=== PATIENT | female | born 1980 | race Caucasian/White ===

== ENCOUNTER 2018-02-09 15:39 | Inpatient (IN) ==
[2018-02-09] MEDS ORDERED: *HR* HYDROmorphone 2 MG/ML SYRINGE IVP ONE (16:43)
[2018-02-09] MEDS ORDERED: Hyoscyamine SL 0.125 MG TAB.SUBL SL ONE (16:43)
[2018-02-09 16:52] LABS: Bilirubin,Urine Negative (Negative); Blood,Urine Moderate (Negative); Clarity,Urine Clear (Clear); Color,Urine Yellow (Yellow); Glucose,Urine (UA) Normal (Normal); Ketones,Urine Negative (Negative); Leukocyte Esterase,Urine Trace (Negative); Nitrite,Urine Positive (Negative); PH,Urine 5.5 pH Units (5.0-8.0); Protein,Urine Negative (Neg-Trace); Specific Gravity,Urine 1.029 (1.010-1.025); Urobilinogen,Urine Normal (Normal)
[2018-02-09 17:04] LABS: Bacteria,Urine None Seen per hpf (None-Few); Hyaline Casts,Urine None Seen per lpf (None-Few); RBC,Urine 0-3 per hpf (0-3); Squamous Epithelial Cell,Urine Many per lpf (None-Few)
[2018-02-09 17:27] LABS: Basophils % 0.3 %; Eosinophils # 0.1 K/mcL (0.0-0.6); Hematocrit 42.2 % (35.3-44.9); Hemoglobin 13.7 g/dL (11.5-15.4); Immature Granulocytes % 0.3 % (0-4); Lymphocytes % 22.2 %; Mean Corpuscular HGB Conc 32.5 g/dL (31.6-35.5); Mean Corpuscular Volume 86.1 fL (83.0-100.0); Mean Platelet Volume 9.9 fL (9.4-12.4); Monocytes # 0.7 K/mcL (0.0-1.3); Neutrophils # 9.5 K/mcL (1.6-8.9); Platelet Count 277 K/mcL (140-400); Red Cell Distribution Width 13.7 % (11.5-14.5); Segmented Neutrophils % 71.2 %
[2018-02-09 17:43] LABS: Alanine Aminotransferase 18 Units/L (7-52); Albumin 4.1 g/dL (3.5-5.7); Albumin/Globulin Ratio 1.6 (1.1-2.2); Alkaline Phosphatase 110 Units/L (34-104); Aspartate Amino Transferase 15 Units/L (13-39); BUN/Creatinine Ratio 18 (6-26); Bilirubin,Total 0.4 mg/dL (0.3-1.0); Blood Urea Nitrogen 14 mg/dL (6-20); Calcium 9.3 mg/dL (8.6-10.3); Carbon Dioxide 25 mEq/L (23-29); Chloride 106 mEq/L (98-107); Globulin 2.6 g/dL (2.4-3.5); Glucose 108 mg/dL (70-105); Osmolality,Calculated 289 (280-300); Potassium 3.7 mEq/L (3.5-5.1); Sodium 139 mEq/L (136-145); Total Protein 6.7 g/dL (6.4-8.9); eGFR For Non-African Americans > 60 (> 60)
[2018-02-09] MEDS ORDERED: cefTRIAXone 1,000 MG in Water for inj. (sterile) 20 ML 10 ML IVP ONE (18:24)
--- NOTE | 2018-02-09 18:33 | Emergency Department Note ---
Disposition Clinical Impression: Kidney stone Disposition: Admitted As Inpatient Condition: Undetermined Referrals: Valentina Main MD [Primary Care Provider] - Forms: ED Satisfaction Letter, Work/School Release General Adult HPI - General Chief complaint: ED Abdominal Pain Stated complaint: FLANK PAIN Time Seen by Provider: 02/09/18 15:48 Source: patient Limitations: no limitations Nursing Notes Reviewed: Yes Vital Signs Reviewed: Yes - History of Present Illness HPI Narrative: This is a 29-year-old female has a history of kidney stones. She presents with concern for kidney stone again. She has required retrieval in the past. She has no fever or chills but has significant flank pain bilaterally. She has no sick or ill contacts. General: No acute distress HEENT: Pupils equal and reactive to light, extraoccular muscle movement is normal, TMS are clear bilaterally. Heart: RRR, No murmor rub or gallop Lungs: lungs clear, no wheezing, rales or ronchi. ABD: SNT, no focal areas or tenderness, no guarding or rebound tenderness. Extremities: No cyanosis, clubbing or edema Neuro: CN 2-12 in tact, no focal deficit. strength 5/5. CVA tenderness bilaterally 12 point review of systems was completed and pertinent positives are discussed. Medical decision making Findings consistent with kidney stone. This is obstructing. It is possibly infected. She does have nitrite positive urine. She will be admitted for pain control and antibiotics. Ceftriaxone was initiated. Pain Scale: 7 - Related Data Home Medications Medication Instructions Recorded Confirmed Diphenoxylate/Atropine [Lomotil 1 tab PO QID PRN 02/09/18 02/09/18 2.5 mg/0.025 mg] Oxybutynin [Ditropan] 5 mg PO BID 02/09/18 02/09/18 Allergies Allergy/AdvReac Type Severity Reaction Status Date / Time No Known Allergies Allergy Verified 02/09/18 18:36 Past Medical History - Past Medical History Medical history: Reports: non-contributory Psychiatric history: Reports: no psych history - Social History Smoking Status: Never smoker Smokeless Tobacco Status: No Alcohol use: Reports: none Drug use: Reports: none Physical Exam - General Limitations: no limitations General appearance: alert Course Vital Signs Temperature 97.9 F 02/09/18 15:43 Pulse Rate 79 02/09/18 15:43 Respiratory Rate 16 02/09/18 15:43 Blood Pressure 190/105 02/09/18 15:43 O2 Sat by Pulse Oximetry 97 02/09/18 15:43 Temperature 97.9 F 02/09/18 16:22 Pulse Rate 78 02/09/18 18:12 Respiratory Rate 18 02/09/18 18:12 Blood Pressure 142/83 02/09/18 18:12 O2 Sat by Pulse Oximetry 100 02/09/18 18:12 Oxygen Delivery Oxygen Delivery Room Air Medical Decision Making - Lab Data Result diagrams: 02/09/18 16:55 02/09/18 16:55 Lab Results 02/09/18 02/09/18 02/09/18 Range/Units 16:26 16:55 16:55 WBC 13.4 H (4.3-11.1) K/mcL RBC 4.90 (3.82-4.97) M/mcL Hgb 13.7 (11.5-15.4) g/dL Hct 42.2 (35.3-44.9) % MCV 86.1 (83.0-100.0) fL MCH 28.0 (28.0-33.3) pg MCHC 32.5 (31.6-35.5) g/dL RDW 13.7 (11.5-14.5) % Plt Count 277 (140-400) K/mcL MPV 9.9 (9.4-12.4) fL Immature Gran % 0.3 (0-4) % Seg Neutrophils % 71.2 % Lymphocytes % 22.2 % Monocytes % 5.0 % Eosinophils % 1.0 % Basophils % 0.3 % Neutrophils # 9.5 H (1.6-8.9) K/mcL Lymphocytes # 3.0 (0.6-4.6) K/mcL Monocytes # 0.7 (0.0-1.3) K/mcL Eosinophils # 0.1 (0.0-0.6) K/mcL Basophils # 0.0 (0.0-0.2) K/mcL Sodium 139 (136-145) mEq/L Potassium 3.7 (3.5-5.1) mEq/L Chloride 106 (98-107) mEq/L Carbon Dioxide 25 (23-29) mEq/L BUN 14 (6-20) mg/dL Creatinine 0.78 (0.60-1.20) mg/dL Est GFR ( Amer) > 60 (> 60) Est GFR (Non-Af Amer) > 60 (> 60) BUN/Creatinine Ratio 18 (6-26) Glucose 108 H (70-105) mg/dL Calculated Osmolality 289 (280-300) Calcium 9.3 (8.6-10.3) mg/dL Total Bilirubin 0.4 (0.3-1.0) mg/dL AST 15 (13-39) Units/L ALT 18 (7-52) Units/L Alkaline Phosphatase 110 H (34-104) Units/L Serum Total Protein 6.7 (6.4-8.9) g/dL Albumin 4.1 (3.5-5.7) g/dL Globulin 2.6 (2.4-3.5) g/dL Albumin/Globulin Ratio 1.6 (1.1-2.2) Urine Color Yellow (Yellow) Urine Clarity Clear (Clear) Urine pH 5.5 (5.0-8.0) pH Units Ur Specific [place] 1.029 H (1.010-1.025) Urine Protein Negative (Neg-Trace) mg/dL Urine Glucose (UA) Normal (Normal) mg/dL Urine Ketones Negative (Negative) mg/dL Urine Blood Moderate H (Negative) Urine Nitrite Positive A (Negative) Urine Bilirubin Negative (Negative) Urine Urobilinogen Normal (Normal) mg/dL Ur Leukocyte Esterase Trace H (Negative) Urine Microscopic RBC 0-3 (0-3) per hpf Urine Microscopic WBC 3-5 H (0-3) per hpf Ur Squamous Epith Cells Many H (None-Few) per lpf Urine Bacteria None Seen (None-Few) per hpf Hyaline Casts None Seen (None-Few) per lpf Ur Culture Indicated? NO. A (NO)
[2018-02-09] MEDS ORDERED: Ketorolac 30 MG/ML VIAL IVP ONE (18:36)
[2018-02-09] MEDS ORDERED: *HR* Belladonna Alkaloids/Opium 30 MG RECTAL SUPPOSITORY RC ONE (18:37)
[2018-02-09] MEDS ORDERED: *HR* Morphine 2 MG/ML SYRINGE IVP ONE (20:11)
[2018-02-09] MEDS ORDERED: Naloxone 0.4 MG/ML INJ IVP PRN (20:21)
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
[2018-02-09] MEDS ORDERED: Ringers Solution, Lactated 1,000 ML IVC SCH (21:45)
[2018-02-09] MEDS ORDERED: Ondansetron 4 MG/2 ML VIAL IVP PRN (21:47)
[2018-02-09] MEDS ORDERED: *HR* OxyCODONE ER (12 HR) 10 MG TABLET PO ONE (22:38)
[2018-02-10] MEDS: Ketorolac 15 MG/ML VIAL IVP PRN ×5 (00:24→22:54)
[2018-02-10 05:52] LABS: Basophils % 0.2 %; Eosinophils % 0.2 %; Hematocrit 37.3 % (35.3-44.9); Hemoglobin 12.5 g/dL (11.5-15.4); Immature Granulocytes % 0.4 % (0-4); Lymphocytes # 1.3 K/mcL (0.6-4.6); Lymphocytes % 6.7 %; Mean Corpuscular HGB Conc 33.5 g/dL (31.6-35.5); Mean Corpuscular Hemoglobin 28.4 pg (28.0-33.3); Mean Corpuscular Volume 84.8 fL (83.0-100.0); Mean Platelet Volume 10.2 fL (9.4-12.4); Monocytes # 0.7 K/mcL (0.0-1.3); Monocytes % 3.8 %; Neutrophils # 17.2 K/mcL (1.6-8.9); Platelet Count 218 K/mcL (140-400); Red Cell Distribution Width 14.1 % (11.5-14.5); Segmented Neutrophils % 88.7 %
[2018-02-10] MEDS ORDERED: *HR* Heparin 5,000 UNIT/ML VIAL SQ SCH (06:00)
[2018-02-10] MEDS ORDERED: D5% in Lactated Ringers 1,000 ML IVC SCH ×2 (06:00→19:24)
[2018-02-10 06:14] LABS: BUN/Creatinine Ratio 17 (6-26); Blood Urea Nitrogen 17 mg/dL (6-20); Calcium 8.8 mg/dL (8.6-10.3); Carbon Dioxide 24 mEq/L (23-29); Chloride 106 mEq/L (98-107); Glucose 99 mg/dL (70-105); Osmolality,Calculated 290 (280-300); Potassium 3.9 mEq/L (3.5-5.1); Sodium 139 mEq/L (136-145); eGFR For Non-African Americans > 60 (> 60)
[2018-02-10 06:15] LABS: INR 1.2; Prothrombin Time 13.3 Seconds (9.4-12.1)
[2018-02-10 06:18] LABS: Activated Partial Thrombo Time 28.1 Seconds (26.0-36.0)
[2018-02-10] MEDS ORDERED: *HR* HYDROcodone/Acet 5/325 mg TABLET PO PRN ×2 (08:09→19:24)
--- NOTE | 2018-02-10 08:15 | Internal Med Progress Note ---
Hospitalist Progress Note - Encounter Date of Encounter: 02/10/18 Time of Encounter: 08:11 - Subjective Interval History: Patient seen and evaluated at bedside, reports that she is still having significant back and abdominal pain, associated with nausea, one episode of vomiting this morning. Report chills. - Exam Vitals: Temp Pulse Resp BP Pulse Ox 98.3 F 84 16 128/86 93 02/10/18 07:06 02/10/18 07:06 02/10/18 07:06 02/10/18 07:06 02/10/18 07:06 Exam: General: Alert and oriented. In moderate distress due to pain. Skin:Normal color, no rash, no lesions. HEENT: EOM, pupils equal, round and reactive. Cardiovascular: RRR, Normal S1 & S2, no rubs, murmurs or gallops. No JVD. Pulse regular. Lungs: CTA b/l, no wheezes or crackles. Abdomen: Soft, generalized tender superficial palpation, no rigidity. CVA tenderness Extremities: No deformity, no edema or tenderness, no joint swelling or clubbing. Neurological: Normal cognition and motor skills. Rest of the physical exam is non contributory - Assessment and Plan (1) Ureteral stone with hydronephrosis Current Visit: Yes Status: Acute Assessment and Plan: CT/CT abd pelvis wo no iv no oral IMPRESSION: 9 mm left UVJ calculus causing moderate proximal hydroureteronephrosis. Additional sub 5 mm nonobstructing left renal calculi are identified. Plan: Patient still reporting abdominal pain associated with chills, nausea and vomiting. Patient is scheduled for ureteroscopic stone extraction with holmium laser Discontinue Ketorolac for pain control as pain is not well controlled started on [place] 5/325mg/PO Q6HR for pain continue IV hydration. (2) Urinary tract infection Current Visit: Yes Status: Acute Assessment and Plan: patient reporting chills and subjective fever. WBC trending up multifactorial UTI vs pain. Discontinue ceftriaxone. will start patient on Piperacillin/Tazobactam Pending urine culture and sensitivity B?C no growth, pending final report. (3) Nausea & vomiting Current Visit: Yes Status: Acute Assessment and Plan: Patient continues to report nausea and one episode of vomiting this morning. On Ondansetron Q4HR PRN. Will change to scheduled. (4) Uncontrolled pain Current Visit: Yes Status: Acute Assessment and Plan: Abdominal and back pain caused by the kidney stone is not well controlled. started on [place] 5/325mg PO Q4HR PRN for pain control. DVT Prophylaxis: chemical DVT prophylaxic discontinued as patient is scheduled for a urological procedure. Mechanical DVT prophylaxis with Intermittent pneumatic compressions. - Summary of Assessment and Plan Summary of Assessment and Plan: Patient to remain hospitalized due to uncontrolled abdominal pain due to kidney stone, scheduled for ureteroscopic stone extraction with holmium laser today. - Time Spent with Patient Total time spent is greater than 50% in coordination of care (as documented) at patient's floor/unit and/or counseling patient: 25 - 35 minutes Plan of Care Discussed with: patient (the nurse.) Internal Medicine: Result - Labs CBC & Chem 7: 02/10/18 04:44 02/10/18 04:44 Labs: Short CBC 02/10/18 Range/Units 04:44 WBC 19.3 H (4.3-11.1) K/mcL Hgb 12.5 (11.5-15.4) g/dL Hct 37.3 (35.3-44.9) % Plt Count 218 (140-400) K/mcL Neutrophils # 17.2 H (1.6-8.9) K/mcL BMP 02/10/18 04:44 Sodium 139 Potassium 3.9 Chloride 106 Carbon Dioxide 24 BUN 17 Creatinine 0.98 Glucose 99 Calcium 8.8 - ABG Interpretation ABG results: PT/INR, D-dimer PT 13.3 Seconds (9.4-12.1) H 02/10/18 04:44 Consult Discharge Plan - Plan Referrals: Valentina Main MD [Primary Care Provider] - (2) Urinary tract infection Qualifiers: Urinary tract infection type: site unspecified Hematuria presence: without hematuria Qualified Code(s): N39.0 - Urinary tract infection, site not specified (3) Nausea & vomiting Qualifiers: Vomiting type: unspecified Vomiting Intractability: non-intractable Qualified Code(s): R11.2 - Nausea with vomiting, unspecified
[2018-02-10] MEDS ORDERED: cefTRIAXone 1,000 MG in Water for inj. (sterile) 20 ML 10 ML IVP SCH (09:00)
[2018-02-10] MEDS: Piperacillin/Tazobactam 3.375 GM in 0.9 % Sodium Chloride Mini Bag 100 ML IVPB SCH ×2 (10:46→17:55)
[2018-02-10] MEDS: Ondansetron 4 MG/2 ML VIAL IVP SCH ×2 (12:52→17:55)
[2018-02-10] MEDS ORDERED: Dexamethasone 4 MG/ML VIAL ONE (14:44)
[2018-02-10] MEDS ORDERED: Ondansetron 4 MG/2 ML VIAL ONE (14:44)
[2018-02-10] MEDS ORDERED: Lidocaine -MPF 2% 2 ML VIAL ONE (14:44)
[2018-02-10] MEDS ORDERED: *HR* Propofol 200 MG/20 ML VIAL IVP ONE (14:45)
[2018-02-10] MEDS ORDERED: *HR* FentaNYL (PF) 100 MCG/2 ML VIAL ONE (14:45)
--- NOTE | 2018-02-10 14:50 | Anesthesia Evaluation PreOp ---
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 Other Medical History: Renal (RECURRENT RENAL STONES), Other (MORBID OBESITY, BMI 40) Anesthesia History: Past Anesthesia, Problems (ITCHING POST ANESTHESIA - REQUIRES BENADRYL) Alcohol Use: none Drug use: none Medications and Allergies Diphenoxylate/Atropine [Lomotil 2.5 mg/0.025 mg] 1 tab PO QID PRN 02/09/18 [ History] Oxybutynin [Ditropan] 5 mg PO BID 02/09/18 [History] 3 Allergy/AdvReac Type Severity Reaction Status Date / Time No Known Allergies Allergy Verified 02/09/18 18:36 - Meds/Allergy Pre-op Review Medications Reviewed: Yes Allergies Reviewed: Yes Beta Blockers on Current Med List: No Anesthesia Results - Labs 02/10/18 04:44 02/10/18 04:44 Laboratory Last Values WBC 19.3 K/mcL (4.3-11.1) H 02/10/18 04:44 RBC 4.40 M/mcL (3.82-4.97) 02/10/18 04:44 Hgb 12.5 g/dL (11.5-15.4) 02/10/18 04:44 Hct 37.3 % (35.3-44.9) 02/10/18 04:44 MCV 84.8 fL (83.0-100.0) 02/10/18 04:44 MCH 28.4 pg (28.0-33.3) 02/10/18 04:44 MCHC 33.5 g/dL (31.6-35.5) 02/10/18 04:44 RDW 14.1 % (11.5-14.5) 02/10/18 04:44 Plt Count 218 K/mcL (140-400) 02/10/18 04:44 MPV 10.2 fL (9.4-12.4) 02/10/18 04:44 Immature Gran % 0.4 % (0-4) 02/10/18 04:44 Seg Neutrophils % 88.7 % 02/10/18 04:44 Lymphocytes % 6.7 % 02/10/18 04:44 Monocytes % 3.8 % 02/10/18 04:44 Eosinophils % 0.2 % 02/10/18 04:44 Basophils % 0.2 % 02/10/18 04:44 Neutrophils # 17.2 K/mcL (1.6-8.9) H 02/10/18 04:44 Lymphocytes # 1.3 K/mcL (0.6-4.6) 02/10/18 04:44 Monocytes # 0.7 K/mcL (0.0-1.3) 02/10/18 04:44 Eosinophils # 0.0 K/mcL (0.0-0.6) 02/10/18 04:44 Basophils # 0.0 K/mcL (0.0-0.2) 02/10/18 04:44 PT 13.3 Seconds (9.4-12.1) H 02/10/18 04:44 INR 1.2 02/10/18 04:44 APTT 28.1 Seconds (26.0-36.0) 02/10/18 04:44 Sodium 139 mEq/L (136-145) 02/10/18 04:44 Potassium 3.9 mEq/L (3.5-5.1) 02/10/18 04:44 Chloride 106 mEq/L (98-107) 02/10/18 04:44 Carbon Dioxide 24 mEq/L (23-29) 02/10/18 04:44 BUN 17 mg/dL (6-20) 02/10/18 04:44 Creatinine 0.98 mg/dL (0.60-1.20) 02/10/18 04:44 Est GFR ( Amer) > 60 (> 60) 02/10/18 04:44 Est GFR (Non-Af Amer) > 60 (> 60) 02/10/18 04:44 BUN/Creatinine Ratio 17 (6-26) 02/10/18 04:44 Glucose 99 mg/dL (70-105) 02/10/18 04:44 Calculated Osmolality 290 (280-300) 02/10/18 04:44 Calcium 8.8 mg/dL (8.6-10.3) 02/10/18 04:44 Total Bilirubin 0.4 mg/dL (0.3-1.0) 02/09/18 16:55 AST 15 Units/L (13-39) 02/09/18 16:55 ALT 18 Units/L (7-52) 02/09/18 16:55 Alkaline Phosphatase 110 Units/L (34-104) H 02/09/18 16:55 Serum Total Protein 6.7 g/dL (6.4-8.9) 02/09/18 16:55 Albumin 4.1 g/dL (3.5-5.7) 02/09/18 16:55 Globulin 2.6 g/dL (2.4-3.5) 02/09/18 16:55 Albumin/Globulin Ratio 1.6 (1.1-2.2) 02/09/18 16:55 Serum , Qual Negative (Negative) 02/10/18 07:53 Urine Color Yellow (Yellow) 02/09/18 16:26 Urine Clarity Clear (Clear) 02/09/18 16:26 Urine pH 5.5 pH Units (5.0-8.0) 02/09/18 16:26 Ur Specific [place] 1.029 (1.010-1.025) H 02/09/18 16:26 Urine Protein Negative mg/dL (Neg-Trace) 02/09/18 16:26 Urine Glucose (UA) Normal mg/dL (Normal) 02/09/18 16:26 Urine Ketones Negative mg/dL (Negative) 02/09/18 16:26 Urine Blood Moderate (Negative) H 02/09/18 16:26 Urine Nitrite Positive (Negative) A 02/09/18 16:26 Urine Bilirubin Negative (Negative) 02/09/18 16:26 Urine Urobilinogen Normal mg/dL (Normal) 02/09/18 16:26 Ur Leukocyte Esterase Trace (Negative) H 02/09/18 16:26 Urine Microscopic RBC 0-3 per hpf (0-3) 02/09/18 16:26 Urine Microscopic WBC 3-5 per hpf (0-3) H 02/09/18 16:26 Ur Squamous Epith Cells Many per lpf (None-Few) H 02/09/18 16:26 Urine Bacteria None Seen per hpf (None-Few) 02/09/18 16:26 Hyaline Casts None Seen per lpf (None-Few) 02/09/18 16:26 Ur Culture Indicated? NO. (NO) A 02/09/18 16:26 Anesthesia Exam Vital Signs/O2 Sat/Glucose, Most Recent Temp Pulse Resp BP Pulse Ox 97.6 F 74 16 121/78 94 02/10/18 11:54 02/10/18 11:54 02/10/18 11:54 02/10/18 11:54 02/10/18 11:54 HEIGHT 1.7 m WERIGHT 117 kg BMI 40 - HEENT Mallampati: I Teeth: Normal Oral Opening: Greater than 3 - Cardiac Rhythm: Regular - Pulmonary Breath Sounds: bilateral Clear Respiratory Effort: Symmetrical - Additional Findings MAR Administrations Hydrocodone Bitart/Acetaminophen ([place] 5-325 Mg) 1 tab PO Q6HR PRN PRN Reason: mild to moderate pain Stop: 08/12/18 08:10 Last Admin: 02/10/18 08:57 Dose: 1 tab Dextrose/Lactated Ringer's (D5% & Lact. Ringers 1000 Ml Bag) 1,000 mls @ 75 mls /hr IVC .[id number] [facility] Stop: 08/12/18 06:01 Last Admin: 02/10/18 06:55 Dose: 75 mls/hr Piperacillin Sod/Tazobactam (Sod 3.375 gm/ Sodium Chloride) 100 mls @ 25 mls/ hr IVPB Q8H [facility] Stop: 08/12/18 09:01 Last Admin: 02/10/18 10:46 Dose: 25 mls/hr Ketorolac Tromethamine (Toradol) 15 mg IVP Q4HR PRN PRN Reason: Pain Stop: 02/15/18 16:01 Last Admin: 02/10/18 12:52 Dose: 15 mg Ondansetron HCl (Zofran) 4 mg IVP Q6HR GIDEON PRN Reason: Protocol Stop: 08/12/18 12:01 Last Admin: 02/10/18 12:52 Dose: 4 mg Anesthesia Assess/Plan ASA Score: 2 Modified Emil Scale for Level of Consciousness: Cooperative, oriented, and tranquil Anesthetic Plan: General Monitoring Plan: Standard Monitors Recovery Plan: PACU Anes Supervising Prov Stmt: Patient informed and consented. Risks, benefits, and alternatives discussed. Patient wishes to proceed.
[2018-02-10] MEDS ORDERED: Isovue-300 50 ML VIAL IVP ONE (15:00)
--- NOTE | 2018-02-10 15:24 | Operative Note ---
Date of procedure: 02/10/18 Pre-op diagnosis: left 9 mm distal ureteral stone Post-op diagnosis: same Procedure: left ureteroscopic stone extraction with holmium laser lithotripsy left retrograde pyelogram and JJ stent Anesthesia: GETA Surgeon: Ryan Dang Was there an [employer] assistant manager present: No Estimated blood loss (cc): 0 Specimen: stone fragments Condition: stable Disposition: PACU Procedure in Detail: PROCEDURE IN DETAIL: Patient was taken back to the operating room, positioned supine on the operating table. Anesthesia was applied without complication. They were moved into dorsal lithotomy. Careful attention was maintained to cushion all pressure points for patient's safety. They were prepped and draped in sterile fashion. Time-out was performed with the proper patient and procedure. A 21-Nigerien rigid cystoscope was inserted into the bladder without difficulty. Systematic examination of bladder revealed no abnormalities. The ureteral orifice was cannulated using a 5-Nigerien ureteral Catheter and a retrograde pyelogram was performed using Isovue. A filling defect was identified which corresponded to the stone. At that point, a zip wire was placed through the 5-Nigerien and confirmed in the renal pelvis with fluoroscopy. A semi-rigid ureteroscope was carefully inserted into the bladder and guided into the ureteral oriface. At that point, the stone was encountered and I felt that it required fragmentation for safe extraction. A 200 micron holmium laser fiber on a setting of 8 and 800 was used to fragment the stone into multiple pieces. The fragments were individually basketed out of the ureter with a 1.9 tipless basket. All stone in the ureter was removed. A 4.8 x 26 ureteral stent was placed over the zip wire under fluoroscopy without complication. The bladder was drained along with the stone fragments. They were collected and sent for stone analysis. The string was left attached to the stent and secured to the patient for easy removal in approximately 72 hours Okay for patient to be discharged today. Patient can remove the stent at home on Thursday by pulling on the string until the entire stent is removed.
[2018-02-10] MEDS ORDERED: *HR* OxyCODONE Immed Rel 5 MG TABLET PO PRN (15:30)
[2018-02-10] MEDS ORDERED: *HR* Meperidine 25 MG/ML SYRINGE IVP PRN (15:30)
[2018-02-10] MEDS ORDERED: *HR* Promethazine 25 MG/ML VIAL IVP PRN (15:30)
[2018-02-10] MEDS ORDERED: Ketorolac 15 MG/ML VIAL IVP SCH (16:00)
--- NOTE | 2018-02-10 16:16 | Anesthesia Evaluation Post Op ---
Date of Encounter: 02/10/18 Time of Encounter: 16:15 - Vital Signs Vital Signs: Vital Signs/O2 Sat, Most Current Temp Pulse Resp BP Pulse Ox 99.4 F 72 16 115/70 95 02/10/18 15:54 02/10/18 16:04 02/10/18 16:04 02/10/18 16:04 02/10/18 16:04 - Lungs Lungs: Clear Ascult./Percussion - Airway Airway: Non-obstructed - Cardiovascular Regular Rate - Mental Status Mental Status: Alert & Oriented, Answers Appropriately - Pain Pain Scale: 0 Pain Scale used: Numeric (1 - 10) - Nausea Vomiting Nausea Vomiting: Not Present - Hydration Hydration: Tolerates oral liquids, Has not voided Notes: 02/10/18 16:16 denies complaints - Discharge PostOp Status: Transfer Patient to floor
[2018-02-10] MEDS ORDERED: Naloxone 0.4 MG/ML INJ IVP PRN (19:24)
[2018-02-10] MEDS ORDERED: Melatonin 3 MG TABLET PO PRN (19:56)
[2018-02-11] MEDS ORDERED: Piperacillin/Tazobactam 3.375 GM VIAL ONE (01:01)
[2018-02-11] MEDS: Piperacillin/Tazobactam 3.375 GM in 0.9 % Sodium Chloride Mini Bag 100 ML IVPB SCH ×2 (01:03→09:11)
[2018-02-11] MEDS: Ondansetron 4 MG/2 ML VIAL IVP SCH ×3 (01:04→09:11)
[2018-02-11] MEDS: Ketorolac 15 MG/ML VIAL IVP PRN ×2 (05:23→09:25)
[2018-02-11 05:33] LABS: Basophils % 0.1 %; Hematocrit 36.5 % (35.3-44.9); Hemoglobin 12.2 g/dL (11.5-15.4); Immature Granulocytes % 0.6 % (0-4); Lymphocytes # 1.2 K/mcL (0.6-4.6); Lymphocytes % 8.1 %; Mean Corpuscular HGB Conc 33.4 g/dL (31.6-35.5); Mean Corpuscular Hemoglobin 28.2 pg (28.0-33.3); Mean Corpuscular Volume 84.3 fL (83.0-100.0); Mean Platelet Volume 9.9 fL (9.4-12.4); Monocytes # 0.3 K/mcL (0.0-1.3); Monocytes % 2.2 %; Neutrophils # 12.8 K/mcL (1.6-8.9); Platelet Count 202 K/mcL (140-400); Red Blood Count 4.33 M/mcL (3.82-4.97); Red Cell Distribution Width 13.9 % (11.5-14.5)
[2018-02-11 05:57] LABS: BUN/Creatinine Ratio 19 (6-26); Blood Urea Nitrogen 13 mg/dL (6-20); Calcium 8.8 mg/dL (8.6-10.3); Carbon Dioxide 21 mEq/L (23-29); Chloride 108 mEq/L (98-107); Glucose 173 mg/dL (70-105); Magnesium 1.9 mg/dL (1.6-2.6); Osmolality,Calculated 288 (280-300); Phosphorous 2.6 mg/dL (2.7-4.5); Potassium 3.8 mEq/L (3.5-5.1); Sodium 137 mEq/L (136-145); eGFR For Non-African Americans > 60 (> 60)
[2018-02-11 06:51] VITALS: BP 136/77
--- NOTE | 2018-02-11 10:17 | Urology Progress Note ---
<Chantel Vaerla N - Last Filed: 02/11/18 10:15> Date of Encounter: 02/11/18 Time of Encounter: 09:45 - Assessment and Plan (1) Ureteral stone with hydronephrosis Status: Acute Assessment and plan: Patient is a 37-year-old female who is one day status post left ureteroscopic stone extraction with holmium laser lithotripsy, left retrograde pyelogram and JJ stent placement. Patient was instructed to self remove stent on postoperative day 3 at home, and if she is unable to do this, she may be seen Thursday morning for stent removal in the office. Patient was instructed to continue antibiotics until stent has been removed. Postoperative expectations, restrictions, activity, and follow-up were discussed with patient Progress Note Narrative: POD #1. Patient seen and examined sitting upright in bed in no apparent distress. Patient is tolerating normal diet and voiding without difficulty. Pain is well-controlled. Patient denies fever, chills, flank pain. Objective Initial Vital Signs Temp Pulse Resp BP Pulse Ox 97.9 F 79 16 190/105 97 02/09/18 15:43 02/09/18 15:43 02/09/18 15:43 02/09/18 15:43 02/09/18 15:43 - General physical appearance Present: well developed, no distress, no pain - Respiratory Present: normal expansion, normal respiratory effort - Abdomen Present: soft, non tender - Integumentary Present: no rash, no abnormal pigmentation - Musculoskeletal Present: normal posture - Psychiatric Present: oriented to time, oriented to person, oriented to place, speech is normal, memory intact - Labs 02/11/18 05:20 02/11/18 05:20 Diabetes panel 02/11/18 Range/Units 05:20 Sodium 137 (136-145) mEq/L Potassium 3.8 (3.5-5.1) mEq/L Chloride 108 H (98-107) mEq/L Carbon Dioxide 21 L (23-29) mEq/L BUN 13 (6-20) mg/dL Creatinine 0.70 (0.60-1.20) mg/dL Glucose 173 H (70-105) mg/dL Calcium 8.8 (8.6-10.3) mg/dL Calcium panel 02/11/18 Range/Units 05:20 Calcium 8.8 (8.6-10.3) mg/dL Phosphorus 2.6 L (2.7-4.5) mg/dL Pituitary panel 02/11/18 Range/Units 05:20 Sodium 137 (136-145) mEq/L Potassium 3.8 (3.5-5.1) mEq/L Chloride 108 H (98-107) mEq/L Carbon Dioxide 21 L (23-29) mEq/L BUN 13 (6-20) mg/dL Creatinine 0.70 (0.60-1.20) mg/dL Glucose 173 H (70-105) mg/dL Calcium 8.8 (8.6-10.3) mg/dL Adrenal panel 02/11/18 Range/Units 05:20 Sodium 137 (136-145) mEq/L Potassium 3.8 (3.5-5.1) mEq/L Chloride 108 H (98-107) mEq/L Carbon Dioxide 21 L (23-29) mEq/L BUN 13 (6-20) mg/dL Creatinine 0.70 (0.60-1.20) mg/dL Glucose 173 H (70-105) mg/dL Calcium 8.8 (8.6-10.3) mg/dL Consult Discharge Plan - Plan Instructions: Urinary Tract Infection in Women (DC) Referrals: Valentina Main MD [Primary Care Provider] - Prescriptions: Sulfamethoxazole/Trimeth DS [Bactrim DS] 1 each PO DAILY #3 tablet <Ryan Dang - Last Filed: 02/13/18 07:38> Date of Encounter: 02/13/18 - Assessment and Plan (1) Ureteral stone with hydronephrosis Status: Acute Assessment and plan: seen in conjunction with PA. Agree with notes and plan Objective Initial Vital Signs Temp Pulse Resp BP Pulse Ox 97.9 F 79 16 190/105 97 02/09/18 15:43 02/09/18 15:43 02/09/18 15:43 02/09/18 15:43 02/09/18 15:43 - Labs 02/11/18 05:20 02/11/18 05:20
--- NOTE | 2018-02-11 11:29 | Discharge Summary ---
- NOTES TO OUTPATIENT PROVIDER Notes to Outpatient Provider: status post left ureteroscopic stone extraction with holmium laser lithotripsy, left retrograde pyelogram and JJ stent placement. - Instructed to remove stent on post op day 3 will discharge with ATB Orders not resulted at time of discharge: Pending orders 02/10/18 15:45 Calculi (stone) Analysis Routine Date of Encounter: 02/11/18 Time of Encounter: 11:27 - Discharge Diagnosis (1) Ureteral stone with hydronephrosis Priority: Primary Status: Acute (2) Urinary tract infection Priority: Secondary Status: Acute Qualifiers: Urinary tract infection type: site unspecified Hematuria presence: without hematuria Qualified Code(s): N39.0 - Urinary tract infection, site not specified (3) Nausea & vomiting Priority: Secondary Status: Acute Qualifiers: Vomiting type: unspecified Vomiting Intractability: non-intractable Qualified Code(s): R11.2 - Nausea with vomiting, unspecified (4) Uncontrolled pain Priority: Secondary Status: Acute Hospital course: Ms. Gillette is a 37 year old female Past meddical hx of kidney stones last stent placed 7-8 years ago, presenting to the emergency department with complaints of kidney stone and left flank pain. Left flank pain began at 03:00 waking her up from sleep. She reports this feels similar to past kidney stones, but pain is much more intense and is made worse with deep inspiration. Lab work revealed WBC 13.4; urine positive for nitrites, leukocyte esterase, and WBCs; CT abdomen pelvis showed 9mm stone in the left UVJ causing proximal hydroureteronephrosis. She was admitted started on IV ATB and given pain control Urology consulted she underwent left ureteroscopic stone extraction with holmium laser lithotripsy left retrograde pyelogram and JJ stent placement on 02/10/[address] Dang. She tolerated procedure well. She was advised per urology to remove stent on Thursday She will be placed on oral ATB until stent removed. Lab work today shows white count trending down she is afebrile, urinating and tolerating oral intake. Advised patient to follow up with urology as well as PCP. She verbalized understanding She is hemodynamically stable and ready for discharge - Time Spent with Patient Total time spent providing and/or coordinating discharge services: - Discharge Medications Prescriptions: Sulfamethoxazole/Trimeth DS [Bactrim DS] 1 each PO DAILY #3 tablet Home Medications: Diphenoxylate/Atropine [Lomotil 2.5 mg/0.025 mg] 1 tab PO QID PRN 02/09/18 [ History] Oxybutynin [Ditropan] 5 mg PO BID 02/09/18 [History] Sulfamethoxazole/Trimeth DS [Bactrim DS] 1 each PO DAILY #3 tablet 02/11/18 [Rx] Allergies/Adverse Reactions: 3 Allergy/AdvReac Type Severity Reaction Status Date / Time No Known Allergies Allergy Verified 02/09/18 18:36 Date of admission: 02/09/18 20:34 Primary care physician: Valentina Main MD Discharging clinician: Adelina Cooper Anticipated date of discharge: 02/11/18 - Constitutional Vitals: Temp Pulse Resp BP Pulse Ox 98.0 F 56 14 136/77 93 02/11/18 06:45 02/11/18 06:45 02/11/18 06:45 02/11/18 06:45 02/11/18 06:45 General appearance: Present: A&O X 3, no acute distress, answers questions appropriately Exam: General: Alert and oriented. In moderate distress due to pain. Skin:Normal color, no rash, no lesions. HEENT: EOM, pupils equal, round and reactive. Cardiovascular: RRR, Normal S1 & S2, no rubs, murmurs or gallops. No JVD. Pulse regular. Lungs: CTA b/l, no wheezes or crackles. Abdomen: Soft, generalized tender superficial palpation, no rigidity. CVA tenderness Extremities: No deformity, no edema or tenderness, no joint swelling or clubbing. Neurological: Normal cognition and motor skills. Rest of the physical exam is non contributory - Patient Status Disposition: Home, Self-Care Condition: Good Functional capacity at discharge: independent ambulation Overall status at discharge: patient is back to baseline - Discharge Instructions Follow Up With: Valentina Main MD [Primary Care Provider] - - Diet and Activity Activity: resume usual activities as tolerated Diet: advance to your usual diet
[2018-02-15 12:22] LABS: Calculi Mass 56 mg
== END 2018-02-11 13:09 | disposition home or self-care (01) | DRG 660 ==
LOC: 3BNU 15:39 → EMEROOARM 15:39 → 3BNU 19:55 → SUATTDRO 20:34
PROVIDERS: ADMIT Internal Medicine; ATTEND Internal Medicine